=== PATIENT | female | born 1980 | race Two or more races ===

== ENCOUNTER 2020-05-08 18:59 | Emergency (ER) | payer SELFPAY ==
[~2020-05-08] VITALS: Ht 162.6 cm; Wt 63.6 kg
--- NOTE | 2020-05-08 19:34 | PHYS DOC ---
Past Medical History Past Medical History scoliosis Smoking Status: Current Every Day Smoker General Adult EDM: Chief Complaint: PAIN CONTROL HPI: HPI: Patient is a 40 year old female who presents with 3-day history of low back pain. Pain is rated 8 out of 10 currently and described as painful and similar to prior episodes. Pain is worse with sitting and walking. Pain radiates down both legs. Patient denies any weakness or numbness or incontinence. Patient denies any urinary symptoms or fever, chills, cough. Review of Systems: Review of Systems: Constitutional: Denies fever or chills. [] Eyes: Denies change in visual acuity. [] HENT: Denies nasal congestion or sore throat. [] Respiratory: Denies cough or shortness of breath. [] Cardiovascular: Denies chest pain or edema. [] GI: Denies abdominal pain, nausea, vomiting, bloody stools or diarrhea. [] : Denies dysuria. [] Musculoskeletal: Denies back pain or joint pain. [] Integument: Denies rash. [] Neurologic: Denies headache, focal weakness or sensory changes. [] Endocrine: Denies polyuria or polydipsia. [] Lymphatic: Denies swollen glands. [] Psychiatric: Denies depression or anxiety. [] Heart Score: Risk Factors: Risk Factors: DM, Current or recent (<one month) smoker, HTN, HLP, family history of CAD, obesity. Risk Scores: Score 0 - 3: 2.5% MACE over next 6 weeks - Discharge Home Score 4 - 6: 20.3% MACE over next 6 weeks - Admit for Clinical Observation Score 7 - 10: 72.7% MACE over next 6 weeks - Early Invasive Strategies Current Medications: Current Medications Medications (Trade) Dose Ordered Sig/Venu Start Time Stop Time Status Last Admin Dose Admin Cyclobenzaprine HCl (Flexeril) 10 mg 1X ONCE 05/08/20 19:30 05/08/20 19:31 UNV Ketorolac Tromethamine (Toradol Im) 30 mg 1X ONCE 05/08/20 19:30 05/08/20 19:31 UNV Physical Exam: PE: Constitutional: Well developed, well nourished, no acute distress, non-toxic appearance. [] HENT: Normocephalic, atraumatic, bilateral external ears normal, no trismus, nose normal. [] Eyes: PERRLA, EOMI, conjunctiva normal, no discharge. [] Neck: Normal range of motion, no tenderness, supple, no stridor. [] Cardiovascular:Heart rate regular rhythm, peripheral pulses intact Lungs & Thorax: No respiratory distress Abdomen: Bowel sounds normal, soft, no tenderness, no masses, no pulsatile masses. [] Skin: Warm, dry, no erythema, no rash. [] Back: Mild tenderness to palpation of lumbar area. Extremities: No tenderness, no cyanosis, no clubbing, ROM intact, no edema. [] Neurologic: Alert and oriented X 3, normal motor function, normal sensory function, no focal deficits noted. [] Dorsiflexion intact to bilateral lower extremities. No saddle anesthesia. Psychologic: Affect normal, judgement normal, mood normal. [] Current Patient Data: Labs: Laboratory Tests Test 05/08/20 19:15 05/08/20 19:37 Urine Collection Type Unknown Urine Color Yellow Urine Clarity Clear Urine pH 6.5 Urine Specific [place] <=1.005 Urine Protein Negative mg/dL Urine Glucose (UA) Negative mg/dL Urine Ketones (Stick) Negative mg/dL Urine Blood Negative Urine Nitrite Negative Urine Bilirubin Negative Urine Urobilinogen Dipstick 0.2 mg/dL Urine Leukocyte Esterase Negative Urine RBC Occ /HPF Urine WBC 1-4 /HPF Urine Squamous Epithelial Cells Few /LPF Urine Bacteria Few /HPF Bedside Urine HCG, Qualitative Hcg negative Current Medications Medications (Trade) Dose Ordered Sig/Venu Route PRN Reason Start Time Stop Time Status Last Admin Dose Admin Ketorolac Tromethamine (Toradol 30mg Vial) 30 mg 1X ONCE IM 05/08/20 20:00 05/08/20 20:01 DC 05/08/20 20:09 Cyclobenzaprine HCl (Flexeril) 10 mg 1X ONCE PO 05/08/20 20:00 05/08/20 20:01 DC 05/08/20 20:09 EKG: EKG: [] Radiology/Procedures: Radiology/Procedures: [] Course & Med Decision Making: Course & Med Decision Making Pertinent Labs and Imaging studies reviewed. (See chart for details No signs or symptoms of cauda equina syndrome. UA is negative. Neurologically intact. Will for discharge outpatient follow-up. Josh Disclaimer: Josh Disclaimer: This electronic medical record was generated, in whole or in part, using a voice recognition dictation system. Departure Departure Impression: Primary Impression: Acute back pain Disposition: 01 HOME, SELF-CARE Condition: STABLE Referrals: [facility] of 2-3 days Patient Instructions: Back Pain, Adult Additional Instructions: EMERGENCY DEPARTMENT GENERAL DISCHARGE INSTRUCTIONS THANK YOU for coming to [facility] Emergency Department (ED) today and trusting us with your care. We trust that you had a positive experience in our Emergency Department. If you wish to speak to the department Management you can contact the assistant department manager at . YOUR FOLLOW UP INSTRUCTIONS ARE FOLLOWS: Do you have a private doctor? If you do not have a private doctor, please ask for a resource list of physicians or clinics that may be able to assist you with follow up care. The Emergency Physician has interpreted your x-rays. The X-ray specialist will also review them. If there is a change in the findings you will be notified in 48 hours when at all possible. A lab test or lab culture may have been done, your results will be reviewed and you will be notified if you need a change in treatment. ADDITIONAL INSTRUCTIONS AND INFORMATION Your care today has been supervised by a physician who is specially trained in emergency care. Many problems require more than one evaluation for a complete diagnosis and treatment. We recommend that you schedule your follow up appointment as recommended to ensure complete treatment of your illness or injury. If you are unable to obtain follow up care and continue to have a problem, or if your condition worsens we recommend that you return to the ED. We are not able to safely determine your condition over the phone nor are we able to give sound medical advice over the phone. For these safety reasons, if you call for medical advice we will ask you to come to the ED for further evaluation If you have any questions regarding these discharge instructions please call the ED at . SAFETY INFORMATION In the interest of safety, wellness, and injury prevention; we encourage you to wear your seatbelt, if you smoke; quit smoking, and we encourage your family to use protective helmet for bicycling and other sporting events that present an increased risk for head injury. IF YOUR SYMPTOMS WORSEN OR NEW SYMPTOMS DEVELOP, OR YOU HAVE CONCERNS ABOUT YOUR CONDITION; OR IF YOUR CONDITION WORSENS WHILE YOU ARE WAITING FOR YOUR FOLLOW UP APPOINTMENT; EITHER CONTACT YOUR PRIMARY CARE DOCTOR, THE PHYSICIAN WHOSE NAME AND NUMBER YOU WERE GIVEN, OR RETURN TO THE ED IMMEDIATELY. Scripts Ibuprofen (IBUPROFEN) 600 Mg Tablet 600 MG PO PRN Q8HRS PRN for PAIN for 7 Days, #21 TAB Prov: RIDGE THOMAS MD 05/08/20 Tramadol Hcl (ULTRAM) 50 Mg Tablet 1 TAB PO PRN Q6HRS PRN for pain MDD 4 Tablet(s) for 5 Days, #20 TAB 0 Refills Prov: RIDGE THOMAS MD 05/08/20 Diazepam (VALIUM) 10 Mg Tablet 10 MG PO TID for back pain for 4 Days, #12 TAB Prov: RIDGE THOMAS MD 05/08/20 Justicifation of Admission Dx: Justifications for Admission: Justification of Admission Dx: N/A RIDGE THOMAS MD May 08, 2020 19:34
[2020-05-08 19:49] LABS: BILIRUBIN,URINE NEGATIVE (NEG); CLARITY,URINE CLEAR; COLOR,URINE YELLOW; NITRITE,URINE NEGATIVE (NEG); PH,URINE 6.5 (<5.0-8.0); PROTEIN,URINE NEGATIVE (NEG-TRACE); UROBILINOGEN,URINE 0.2 mg/dL (0.2 mg/dL)
[2020-05-08] MEDS ORDERED: KETOROLAC 30 MG/ML VIAL. IM ONE (20:00)
[2020-05-08] MEDS ORDERED: CYCLOBENZAPRINE 10 MG TABLET. PO ONE (20:00)
[2020-05-08] MEDS ORDERED: TRAM-48 PO (20:02)
[2020-05-08] MEDS ORDERED: VALIUM10 MG PO (20:02)
[2020-05-08] MEDS ORDERED: IBUP-1007 PO (20:03)
[2020-05-08 20:05] LABS: BACTERIA,URINE FEW /HPF (0-FEW); RBC,URINE OCC /HPF (0-2); SQUAMOUS EPITHELIAL CELL,UR FEW /LPF
[2020-05-08 20:25] VITALS: BP 117/78
== END 2020-05-08 20:27 | disposition home or self-care (01) ==
LOC: ER 18:59
DX: M54.5 Low back pain (principal); M79.604 Pain in right leg; M79.605 Pain in left leg; F17.200 Nicotine dependence, unspecified, uncomplicated
CPT/HCPCS: 81001; 81025; 96372; 99283; J1885

== ENCOUNTER 2020-07-14 00:32 | Emergency (ER) | payer SELFPAY ==
[~2020-07-14] VITALS: Ht 162.6 cm; Wt 61.3 kg
[~2020-07-14 00:32] MED LIST: IBUP-1007 PO; TRAM-48 PO; VALIUM10 MG PO
[2020-07-14 00:48] LABS: BILIRUBIN,URINE NEGATIVE (NEG); CLARITY,URINE CLEAR; COLOR,URINE YELLOW; NITRITE,URINE NEGATIVE (NEG); PH,URINE 5.5 (<5.0-8.0); PROTEIN,URINE NEGATIVE (NEG-TRACE); UROBILINOGEN,URINE 0.2 mg/dL (0.2 mg/dL)
[2020-07-14 00:54] LABS: BACTERIA,URINE 0 /HPF (0-FEW); RBC,URINE 0 /HPF (0-2); SQUAMOUS EPITHELIAL CELL,UR MOD /LPF; WBC,URINE OCC /HPF (0-4)
[2020-07-14] MEDS ORDERED: HYDR-3164 PO (01:32)
[2020-07-14] MEDS ORDERED: TRAM-48 PO (01:32)
[2020-07-14] MEDS ORDERED: CYCL10TA2 PO (01:32)
--- NOTE | 2020-07-14 01:32 | PHYS DOC ---
Past Medical History Past Medical History: No Pertinent History Additional Past Medical Histor: SCOLIOSIS, BULGING DISC Past Surgical History: Tubal ligation Smoking Status: Current Every Day Smoker Alcohol Use: Occasionally General Adult EDM: Chief Complaint: LOWER BACK PAIN OR INJURY HPI: HPI: Patient is a 40 year old female past medical history of scoliosis and chronic lower back pain presents with a chief complaint of exacerbation of chronic back pain. Patient states pain has been ongoing for the last 3 weeks progressively becoming worse. Patient states she normally takes Toradol [place] and Flexeril states she has been out of them for 1 month. She denies any injury. She states current pain is typical of her chronic pain. She denies any saddle anesthesia or loss of bowel or bladder. Review of Systems: Review of Systems: Constitutional: Denies fever or chills. [] Eyes: Denies change in visual acuity. [] HENT: Denies nasal congestion or sore throat. [] Respiratory: Denies cough or shortness of breath. [] Cardiovascular: Denies chest pain or edema. [] GI: Denies abdominal pain, nausea, vomiting, bloody stools or diarrhea. [] : Denies dysuria. [] Musculoskeletal: Positive back pain Integument: Denies rash. [] Neurologic: Denies headache, focal weakness or sensory changes. [] Endocrine: Denies polyuria or polydipsia. [] Lymphatic: Denies swollen glands. [] Psychiatric: Denies depression or anxiety. [] Heart Score: Risk Factors: Risk Factors: DM, Current or recent (<one month) smoker, HTN, HLP, family history of CAD, obesity. Risk Scores: Score 0 - 3: 2.5% MACE over next 6 weeks - Discharge Home Score 4 - 6: 20.3% MACE over next 6 weeks - Admit for Clinical Observation Score 7 - 10: 72.7% MACE over next 6 weeks - Early Invasive Strategies Allergies: Allergies: Allergies Coded Allergies Type Severity Reaction Last Updated Verified No Known Drug Allergies 05/08/20 No Physical Exam: PE: Constitutional: Well developed, well nourished, no acute distress, non-toxic appearance. [] HENT: Normocephalic, atraumatic, bilateral external ears normal, oropharynx moist, no oral exudates, nose normal. [] Eyes: PERRLA, EOMI, conjunctiva normal, no discharge. [] Neck: Normal range of motion, no tenderness, supple, no stridor. [] Cardiovascular:Heart rate regular rhythm, no murmur [] Lungs & Thorax: Bilateral breath sounds clear to auscultation [] Abdomen: Bowel sounds normal, soft, no tenderness, no masses, no pulsatile masses. [] Skin: Warm, dry, no erythema, no rash. [] Back: No tenderness, no CVA tenderness. [] Extremities: No tenderness, no cyanosis, no clubbing, ROM intact, no edema. [] Neurologic: Alert and oriented X 3, normal motor function, normal sensory function, no focal deficits noted. [] Psychologic: Affect normal, judgement normal, mood normal. [] Current Patient Data: Labs: Laboratory Tests Test 07/14/20 00:35 07/14/20 00:50 Urine Collection Type Unknown Urine Color Yellow Urine Clarity Clear Urine pH 5.5 (<5.0-8.0) Urine Specific [place] 1.010 (1.000-1.030) Urine Protein Negative mg/dL (NEG-TRACE) Urine Glucose (UA) Negative mg/dL (NEG) Urine Ketones (Stick) Negative mg/dL (NEG) Urine Blood Negative (NEG) Urine Nitrite Negative (NEG) Urine Bilirubin Negative (NEG) Urine Urobilinogen Dipstick 0.2 mg/dL (0.2 mg/dL) Urine Leukocyte Esterase Negative (NEG) Urine RBC 0 /HPF (0-2) Urine WBC Occ /HPF (0-4) Urine Squamous Epithelial Cells Mod /LPF Urine Bacteria 0 /HPF (0-FEW) Urine Mucus Slight /LPF POC Urine HCG, Qualitative Hcg negative (Negative) Vital Signs: Vital Signs Date Time Temp Pulse Resp B/P (MAP) Pulse Ox O2 Delivery O2 Flow Rate FiO2 07/14/20 01:06 98.6 63 18 139/74 (95) 100 Room Air 98.6 EKG: EKG: [] Radiology/Procedures: Radiology/Procedures: [] Course & Med Decision Making: Course & Med Decision Making Pertinent Labs and Imaging studies reviewed. (See chart for details) [] Dragon Disclaimer: Dragon Disclaimer: This electronic medical record was generated, in whole or in part, using a voice recognition dictation system. Departure Departure Impression: Primary Impression: Back pain Disposition: HOME, SELF-CARE Condition: STABLE Referrals: NO PCP (PCP) Patient Instructions: Back Pain, Child Scripts Tramadol Hcl (ULTRAM) 50 Mg Tablet 1 TAB PO PRN Q6HRS PRN for pain MDD 4 Tablet(s) for 7 Days, #28 TAB 0 Refills Prov: JONATHAN MATHUR I DO 07/14/20 Hydrocodone/Apap 5-325 (NORCO 5-325 TABLET) 1 Each Tablet 1 TAB PO PRN Q6HRS PRN for PAIN for 10 Days, #14 TAB 0 Refills Prov: JONATHAN MATHUR I DO 07/14/20 Cyclobenzaprine Hcl (CYCLOBENZAPRINE HCL) 10 Mg Tablet 1 TAB PO TID, #30 TAB Prov: JONATHAN MATHUR I DO 07/14/20 Justicifation of Admission Dx: Justifications for Admission: Justification of Admission Dx: N/A JONATHAN MATHUR DO Jul 14, 2020 01:32
[2020-07-14 01:50] VITALS: BP 133/93
== END 2020-07-14 01:50 | disposition home or self-care (01) ==
LOC: ER 00:32
DX: M54.5 Low back pain (principal); G89.29 Other chronic pain; F17.200 Nicotine dependence, unspecified, uncomplicated; Z98.51 Tubal ligation status
CPT/HCPCS: 81001; 81025; 99283

== ENCOUNTER 2020-12-07 14:18 | Emergency (ER) | payer SELFPAY ==
[~2020-12-07] VITALS: Ht 162.6 cm; Wt 63.6 kg
[~2020-12-07 14:18] MED LIST changes: +CYCL10TA2 PO; +HYDR-3164 PO
[2020-12-07 14:32] VITALS: BP 134/84
[2020-12-07] MEDS ORDERED: CYCL10TA2 PO (14:35)
[2020-12-07] MEDS ORDERED: METH4TAB2 PO (14:35)
[2020-12-07] MEDS ORDERED: DICL50TA2 PO (14:35)
--- NOTE | 2020-12-07 14:36 | PHYS DOC ---
Past Medical History Past Medical History: No Pertinent History, Sciatica Additional Past Medical Histor: SCOLIOSIS, BULGING DISC Past Surgical History: Tubal ligation Smoking Status: Current Every Day Smoker Alcohol Use: Occasionally General Adult EDM: Chief Complaint: BACK PAIN OR INJURY HPI: HPI: Patient is a 40 year old female with history of chronic low back pain, sciatica who presents to the ED today complaining of mild intermittent bilateral low back pain worse on the right side radiating to the right lower extremity, symptoms got worse in the last 3 days after she bent over to pick something on the ground. Patient denies any falling. Denies any loss of bowel/bladder function. States the pain is throbbing worse when she lays on her back. She states she has been taking Tylenol with no relief. She is also requesting a note for work for 2 days. Review of Systems: Review of Systems: Constitutional: Denies fever or chills. [] GI: Denies abdominal pain, nausea, vomiting, bloody stools or diarrhea. [] : Denies dysuria. [] Musculoskeletal: Reports low back pain Integument: Denies rash. [] Neurologic: Denies headache, focal weakness or sensory changes. [] Psychiatric: Denies depression or anxiety. [] Heart Score: Risk Factors: Risk Factors: DM, Current or recent (<one month) smoker, HTN, HLP, family history of CAD, obesity. Risk Scores: Score 0 - 3: 2.5% MACE over next 6 weeks - Discharge Home Score 4 - 6: 20.3% MACE over next 6 weeks - Admit for Clinical Observation Score 7 - 10: 72.7% MACE over next 6 weeks - Early Invasive Strategies Allergies: Allergies: Allergies Coded Allergies Type Severity Reaction Last Updated Verified No Known Drug Allergies 05/08/20 No Physical Exam: PE: Constitutional: Well developed, well nourished, no acute distress, non-toxic appearance. [] Abdomen: Bowel sounds normal, soft, no tenderness, no masses, no pulsatile masses. [] Skin: Warm, dry, no erythema, no rash. [] Back: No tenderness, no CVA tenderness. Positive straight leg raise to the right at roughly 30 degrees Extremities: No tenderness, no cyanosis, no clubbing, ROM intact, no edema. [] Neurologic: Alert and oriented X 3, normal motor function, normal sensory function, no focal deficits noted. [] Psychologic: Affect normal, judgement normal, mood normal. [] EKG: EKG: [] Radiology/Procedures: Radiology/Procedures: [] Course & Med Decision Making: Course & Med Decision Making Pertinent Labs and Imaging studies reviewed. (See chart for details) This is a 40-year-old female patient presenting to the ED today with exacerbation of chronic low back pain with sciatica. Given prescription for diclofenac, Medrol Dosepak and cyclobenzaprine. Follow-up with PCP in 1 to 2 weeks Josh Disclaimer: Josh Disclaimer: This electronic medical record was generated, in whole or in part, using a voice recognition dictation system. Departure Departure Impression: Primary Impression: Low back pain Qualified Codes: M54.41 - Lumbago with sciatica, right side; G89.29 - Other chronic pain Disposition: 01 DC HOME SELF CARE/HOMELESS Condition: STABLE Referrals: NO PCP (PCP) follow up with your doctor in 1 week Patient Instructions: Back Pain, Adult, [id number] Additional Instructions: You were seen for low back pain. Take the prescribed medications as ordered. Follow-up with your doctor in 1 to 2 weeks. Come back to the ED at any point symptoms worsen Scripts Diclofenac Potassium (DICLOFENAC POTASSIUM) 50 Mg Tablet 1 TAB PO BID, #20 TAB 0 Refills Prov: ELIAS BELTRE APRN 12/07/20 Methylprednisolone (MEDROL) 4 Mg Tab.ds.pk 1 PKG PO UD, #1 PKG Prov: ELIAS BELTRE APRN 12/07/20 Cyclobenzaprine Hcl (CYCLOBENZAPRINE HCL) 10 Mg Tablet 1 TAB PO TID, #30 TAB Prov: ELIAS BELTRE APRN 12/07/20 ELIAS BELTRE APRN Dec 07, 2020 14:36
== END 2020-12-07 15:00 | disposition home or self-care (01) ==
LOC: ER 14:18
DX: G89.29 Other chronic pain (principal); M54.41 Lumbago with sciatica, right side; F17.200 Nicotine dependence, unspecified, uncomplicated; Z98.51 Tubal ligation status
CPT/HCPCS: 99283

== ENCOUNTER 2021-12-26 14:47 | Emergency (ER) | payer SELFPAY ==
[~2021-12-26] VITALS: Ht 162.6 cm; Wt 66.7 kg
[~2021-12-26 14:47] MED LIST changes: +CYCL10TA19 PO; -CYCL10TA2 PO; +DICL50TA2 PO; +METH4TAB2 PO
--- NOTE | 2021-12-26 15:57 | RAD ---
EXAM: 3 Views Right Shoulder DATE: 12/26/2021 3:35 PM INDICATION: Reason: pain, "bump" / Spl. Instructions: / History: COMPARISON: No Prior FINDINGS: There is no evidence for acute fracture or dislocation. There is widening of the AC joint and coracoc lavicular space measuring 21 mm. Humeral head is not high riding. Patchy airspace opacities medial right lung base likely consolidative process as pneumonia. IMPRESSION: 1. Right AC separation with focal shaft offset of the right AC joint and widening of the coracoclavi cular space 2. No acute fracture. 3. Patchy airspace opacities medial right lung base likely consolidative process as pneumonia. Electronically signed by: Ino Gomez MD (12/26/2021 3:55 PM) SOY
--- NOTE | 2021-12-26 16:21 | PHYS DOC ---
Past Medical History Past Medical History: No Pertinent History, Sciatica Additional Past Medical Histor: SCOLIOSIS, BULGING DISC Past Surgical History: Tubal ligation Smoking Status: Current Every Day Smoker Alcohol Use: Occasionally General Adult EDM: Chief Complaint: SHOULDER INJURY HPI: HPI: Patient is a 41 year old female who presents with right shoulder pain. Patient was seen at [facility] ER on 12/20/2021 and diagnosed with shoulder separation. She was provided with a sling and prescription for oxycodone/APAP. Patient reports she's been unable to work since her original injury, which involved falling onto her right shoulder after tripping on chicken wire. She is concerned that her shoulder continues to have a visible deformity and that she's unable to see orthopedics until 01/10/22. Patient states her pain is well controlled with the medications she has at home. Review of Systems: Review of Systems: ROS negative or noncontributory except as mentioned in HPI. Heart Score: C/O Chest Pain: No Allergies: Allergies: Allergies Coded Allergies Type Severity Reaction Last Updated Verified No Known Drug Allergies 05/08/20 No Physical Exam: PE: Constitutional: Well developed, well nourished, no acute distress, non-toxic appearance. HENT: Normocephalic, atraumatic, bilateral external ears normal, nose normal. Eyes: EOMI, conjunctiva normal, no discharge. Neck: Normal range of motion, no tenderness, no stridor. Skin: Warm, dry, no erythema, no rash. Extremities: Right superior shoulder tender over AC joint with noted deformity, no skin color changes or open wounds, radial pulses 2+ and symmetrical, active range of motion of digits intact. Extremities otherwise no tenderness, no cyanosis, no clubbing, ROM intact, no edema. Neurologic: Alert and oriented x4, steady and symmetrical upright gait, no focal deficits noted. Current Patient Data: Vital Signs: Vital Signs Date Time Temp Pulse Resp B/P (MAP) Pulse Ox O2 Delivery O2 Flow Rate FiO2 12/26/21 15:04 98.7 79 16 133/68 (89) 97 Room Air 98.7 Radiology/Procedures: Radiology/Procedures: PROCEDURE: SHOULDER 2+V RIGHT EXAM: 3 Views Right Shoulder DATE: 12/26/2021 3:35 PM INDICATION: Reason: pain, "bump" / Spl. Instructions: / History: COMPARISON: No Prior FINDINGS: There is no evidence for acute fracture or dislocation. There is widening of the AC joint and coracoclavicular space measuring 21 mm. Humeral head is not high riding. Patchy airspace opacities medial right lung base likely consolidative process as pneumonia. IMPRESSION: 1. Right AC separation with focal shaft offset of the right AC joint and widening of the coracoclavicular space 2. No acute fracture. 3. Patchy airspace opacities medial right lung base likely consolidative process as pneumonia. Electronically signed by: Ino Gomez MD (12/26/2021 3:55 PM) [facility] Course & Med Decision Making: Course & Med Decision Making Pertinent Labs and Imaging studies reviewed. (See chart for details) Patient is a 41-year-old female who presents with persistent right shoulder pain. 6 days ago, patient was seen in the emergency department at [facility] and diagnosed with shoulder separation, although the patient states she was told that "nothing is wrong." She is concerned/frustrated that she is not able to be seen by orthopedics until 01/10/2022. She does not have any complaints of breakthrough pain. Repeat films will be obtained. On patient's paperwork, she was diagnosed with a type II AC joint separation, however today it appears to be type III. Will provide patient with orthopedic follow-up, however advised her there may not be a significant change in appointment wait time. Return precautions were provided. Patient understands and is agreeable to discharge plan. Dragon Disclaimer: Dragon Disclaimer: This electronic medical record was generated, in whole or in part, using a voice recognition dictation system. Departure Departure Impression: Primary Impression: Acromioclavicular joint separation, type 3 Qualified Codes: S43.101D - Unspecified dislocation of right acromioclavicular joint, subsequent encounter Disposition: HOME / SELF CARE / HOMELESS Condition: STABLE Referrals: NO PCP (PCP) DONNELL MIRANDA II, MD Patient Instructions: Acromioclavicular Injuries, [id number] Additional Instructions: EMERGENCY DEPARTMENT GENERAL DISCHARGE INSTRUCTIONS Thank you for coming to [facility] Emergency Department (ED) today and trusting us with you care. We trust that you had a positive experience in our Emergency Department. If you wish to speak to the department management, you may call the director at . YOUR FOLLOW UP INSTRUCTIONS ARE FOLLOWS: 1. Follow up with your primary care doctor. If you do not have a primary doctor, please ask for a resource list of physicians or clinics that may be able to assist you with follow up care. 2. The emergency provider has interpreted your imaging studies, if any were ordered. The radiology data storage specialist also reviewed them. If there is a change in the findings, you will be notified in 48 hours when at all possible. 3. If a lab test or culture has been done, your results will be reviewed and you will be notified if you need a change in treatment. 4. Follow instructions verbalized to you and refer to the printouts if needed. ADDITIONAL INSTRUCTIONS AND INFORMATION: 1. Your care today has been supervised by a physician who is specially trained in emergency care. Many problems require more than one evaluation for a complete diagnosis and treatment. We recommend that you schedule your follow up appointment as recommended to ensure complete treatment of you illness or injury. If you are unable to obtain follow up care and continue to have a problem, or if your condition worsens, we recommend that you return to the ED. 2. We are not able to safely determine your condition over the phone nor are we able to give sound medical advice over the phone. For these safety reasons, if you call for medical advice we will ask you to come to the ED for further evaluation. 3. If you have any questions regarding these discharge instructions please call the ED at . SAFETY INFORMATION: In the interest of safety, wellness, and injury prevention; we encourage you to wear your seat belt, if you smoke; quite smoking, and we encourage family to use a protective helmet for bicycling and other sporting events that present an increased risk for head injury. IF YOUR SYMPTOMS WORSEN OR NEW SYMPTOMS DEVELOP, OR YOU HAVE CONCERNS ABOUT YOUR CONDITION; OR IF YOUR CONDITION WORSENS WHILE YOU ARE WAITING FOR YOUR FOLLOW UP APPOINTMENT; EITHER CONTACT YOUR PRIMARY CARE DOCTOR, THE PHYSICIAN WHOSE NAME AND NUMBER YOU WERE GIVEN, OR RETURN TO THE ED IMMEDIATELY. CARLEY OVERTON Dec 26, 2021 16:21
[2021-12-26 16:35] VITALS: BP 129/80
== END 2021-12-26 16:40 | disposition home or self-care (01) ==
LOC: ER 14:47
DX: S43.101A Unspecified dislocation of right acromioclavicular joint, initial encounter (principal); F17.200 Nicotine dependence, unspecified, uncomplicated; W01.0XXA Fall on same level from slipping, tripping and stumbling without subsequent striking against object, initial encounter; Y93.89 Activity, other specified; Y92.89 Other specified places as the place of occurrence of the external cause; Y99.8 Other external cause status
CPT/HCPCS: 73030; 99283